=== PATIENT | male | born 1955 | race Caucasian/White ===

== ENCOUNTER 2018-06-10 17:47 | Inpatient (IN) | payer MEDICARE, MEDICAID ==
--- NOTE | 2018-06-10 18:15 | ED Physician Chart ---
ED Chief Complaint/HPI - Patient Information Date Seen:: 06/10/18 Time Seen:: 18:10 Chief Complaint:: rash dermatitis History of Present Illness:: 62 yr old male from [facility] for rash arms no sob or trouble breathing pt states rash started after they put acream on his arms after they showered him he says he is better now Allergies:: Allergies Allergy/AdvReac Type Severity Reaction Status Date / Time No Known Allergies Allergy Verified 06/10/18 17:57 Vitals:: Vital Signs - 8 hr 06/10/18 17:57 Temp 98.6 F HR 67 RR 18 BP 169/68 O2 Sat % 95 ED Review of Systems - Review of Systems Skin: Skin lesions Head: No headache Eyes: Other (chronic vision problems secondary to diabetes) ENT: No earache Neck: No neck pain Cardio Vascular: No chest pain Pulmonary: No SOB GI: No vomiting G/U: No dysuria Endocrine: No polyuria Allergic/Immuno: No urticaria Neurological: No syncope ED Past Medical History - Past Medical History Past Medical History: DM, ESRD, Seizures, Other (hemodialysis ) Surgical History: other (bilateral bka) Family Medical History - Family Member Mother History Unknown: Yes ED Physical Exam - Physical Examination General/Constitutional: Well-developed, well-nourished Head: Atraumatic Eyes: Lids, conjuctiva normal Skin: No ecchymosis Neck: Nontender Respiratory: Nl effort/Exclusion Cardio Vascular: No murmur, gallop, rubs GI: No tenderness/rebounding/guarding Extremities: No tenderness or effusion (bilateral bka) Neuro/Psych: Alert/oriented ED Assessment - Assessment General Assessment: skin rash dermatitis dm bilateral bka mild cellulitis ED Septic Shock - . Is Septic Shock (SBP<90, OR Lactate>4 mmol\L) present?: No - <6hrs of presentation: Vital Signs: Vital Signs - 8 hr 06/10/18 17:57 Temp 98.6 F HR 67 RR 18 BP 169/68 O2 Sat % 95 ED Reassessment (Disposition) - Reassessment Reassessment:: stable Reassessment Condition:: Improved - Diagnosis Diagnosis:: dermatitis cellulitis - Patient Disposition Discharge/Transfer:: Acute Care w/in this hosp Condition at Disposition:: Stable
[2018-06-10 18:37] LABS: % BASOPHILS 0.7 % (0.0-2.0); % EOSINOPHILS 0.7 % (0.0-5.0); % LYMPHOCYTES 5.5 % (20.0-50.0); % MONOCYTES 3.3 % (2.0-10.0); % NEUTROPHILS 89.8 % (40.0-80.0); BASOPHILE ABSOLUTE 0.1 Th/cumm (0-0.2); EOSINOPHILE ABSOLUTE 0.1 Th/cmm (0.1-0.4); HEMATOCRIT 38.4 % (41.0-60); HEMOGLOBIN 12.3 gm/dL (12-16); LYMPHOCYTE ABSOLUTE 0.5 Th/cmm (1.5-3.0); MEAN CORPUSCULAR HEMOGLOBIN 28.9 pg (26.0-30.0); MEAN CORPUSCULAR HGB CONC 32.1 pg (28.0-36.0); MEAN PLATELET VOLUME 7.3 fl; MONOCYTE ABSOLUTE 0.3 Th/cmm (0.3-1.0); NEUTROPHILE ABSOLUTE 8.5 Th/cmm (1.8-8.0); PLATELET COUNT 220 Th/cmm (150-400); RED BLOOD COUNT 4.27 Mil/cmm (4.30-5.70); RED CELL DISTRIBUTION WIDTH 16.4 % (11.5-20.0); WHITE BLOOD COUNT 9.5 Th/cmm (4.8-10.8)
[2018-06-10 19:00] LABS: ALB/GLOB RATIO 1.2 (1.0-1.8); ALBUMIN 3.2 gm/dL (4.2-5.5); ANION GAP 16.6 (7.0-16.0); BILIRUBIN,TOTAL 0.3 mg/dL (0.3-1.0); CALCIUM SERUM 9.2 mg/dL (8.6-10.3); GFR AFRICAN-AMERICAN 13.2 ml/min (>90); GFR NON AFRICAN-AMERICAN 10.9 ml/min; POTASSIUM SERUM 4.6 mEq/L (3.5-5.1); TOTAL PROTEIN,SERUM 5.9 gm/dL (6.0-8.3)
[2018-06-10 19:02] LABS: CREATININE - SERUM 5.7 mg/dL (0.7-1.3)
[2018-06-10 20:49] LABS: URINE SOURCE CLEAN C
[2018-06-10 20:50] LABS: URINE BILIRUBIN NEGATIVE (NEGATIVE); URINE BLOOD TRACE (NEGATIVE); URINE GLUCOSE (UA) 100 mg/dL (NEGATIVE); URINE KETONE NEGATIVE (NEGATIVE); URINE LEUKOCYTE ESTERASE NEGATIVE (NEGATIVE); URINE MICROSCOPIC INDICATED? YES; URINE NITRATE NEGATIVE (NEGATIVE); URINE PROTEIN 100 mg/dL (NEGATIVE); URINE UROBILINOGEN 0.2 E.U./dL (0.2 - 1.0)
[2018-06-10 20:56] LABS: URINE CLARITY CLEAR (CLEAR); URINE COLOR YELLOW
[2018-06-10 20:59] LABS: URINE BACTERIA FEW /hpf (NONE SEEN); URINE EPITHELIAL CELLS FEW /lpf (FEW); URINE WBC 0-2 /hpf (0-5)
[2018-06-10 22:01] VITALS: BP 172/71
[2018-06-10] MEDS: Hydrocodone/APAP 5mg/325mg Tab PO PRN (22:46)
[2018-06-10] MEDS: D5-0.45NS 1,000 ML IV SCH (22:50)
[2018-06-11 05:14] LABS: % BASOPHILS 0.7 % (0.0-2.0); % EOSINOPHILS 0.7 % (0.0-5.0); % LYMPHOCYTES 10.4 % (20.0-50.0); % MONOCYTES 6.3 % (2.0-10.0); % NEUTROPHILS 81.9 % (40.0-80.0); BASOPHILE ABSOLUTE 0.1 Th/cumm (0-0.2); EOSINOPHILE ABSOLUTE 0.1 Th/cmm (0.1-0.4); HEMATOCRIT 36.5 % (41.0-60); HEMOGLOBIN 11.6 gm/dL (12-16); LYMPHOCYTE ABSOLUTE 0.9 Th/cmm (1.5-3.0); MEAN CELL VOLUME 89.9 fl (80-99); MEAN CORPUSCULAR HEMOGLOBIN 28.6 pg (26.0-30.0); MEAN CORPUSCULAR HGB CONC 31.9 pg (28.0-36.0); MEAN PLATELET VOLUME 7.5 fl; MONOCYTE ABSOLUTE 0.6 Th/cmm (0.3-1.0); NEUTROPHILE ABSOLUTE 7.2 Th/cmm (1.8-8.0); PLATELET COUNT 212 Th/cmm (150-400); RED BLOOD COUNT 4.06 Mil/cmm (4.30-5.70); RED CELL DISTRIBUTION WIDTH 16.6 % (11.5-20.0); WHITE BLOOD COUNT 8.9 Th/cmm (4.8-10.8)
[2018-06-11 05:37] LABS: ANION GAP 15.3 (7.0-16.0); CALCIUM SERUM 9.2 mg/dL (8.6-10.3); CARBON DIOXIDE 25.1 mEq/L (21.0-31.0); GFR AFRICAN-AMERICAN 12.4 ml/min (>90); GFR NON AFRICAN-AMERICAN 10.2 ml/min; POTASSIUM SERUM 4.4 mEq/L (3.5-5.1)
[2018-06-11] MEDS ORDERED: Albumin 25% 12.5gm/50mL 12.5 GM/50 ML BTL IV PRN (10:34)
[2018-06-11] MEDS ORDERED: Heparin Sodium 1,000 Units/mL Vial HD PRN (13:19)
[2018-06-11] MEDS ORDERED: Polyvinyl Alcohol Ophth Soln 15 mL Bottle EACH EYE PRN (13:33)
[2018-06-11] MEDS ORDERED: Non-Formulary Item 1 EA (Melatonin [Melatonin] 5 MG) PO PRN (13:33)
[2018-06-11] MEDS ORDERED: Hydrocodone/APAP 5mg/325mg Tab PO PRN ×2 (13:33→20:36)
[2018-06-11] MEDS ORDERED: Acetaminophen 500 MG TAB PO PRN (13:33)
[2018-06-11] MEDS ORDERED: Non-Formulary Item 1 EA (Amino Acids/Protein Hydrolys [Pro-Stat Sugar Free Liquid] 30 ML) PO SCH (14:00)
--- NOTE | 2018-06-11 14:44 | History & Physical ---
ADMIT DATE: 06/11/2018 CHIEF COMPLAINT: Dermatitis. HISTORY OF PRESENT ILLNESS: This is a 62-year-old male who is a senior living resident, admitted to the med/surg unit due to rash in bilateral upper extremity. The patient denies any fevers at the senior living. PAST MEDICAL HISTORY: Diabetes, ESRD, and seizures. PAST SURGICAL HISTORY: Bilateral BKA. ALLERGIES: No drug allergies. FAMILY HISTORY: Noncontributory. REVIEW OF SYSTEMS: GENERAL: Denies any fever or chills. CARDIOVASCULAR: No chest pain. RESPIRATORY: Denies shortness of breath. GASTROINTESTINAL: Denies nausea, vomiting, abdominal pain. GENITOURINARY: Denies increased frequency or dysuria. NEUROLOGIC: No headaches, seizures, or syncope. All systems reviewed and negative. PHYSICAL EXAMINATION: GENERAL: Elderly male. Awake, alert, in no apparent distress. VITAL SIGNS: Temperature 98, heart rate 55, blood pressure 161/65, respirations 20, and O2 100%. HEENT: Head; normocephalic, atraumatic. NECK: Supple. No mass. LUNGS: Clear bilaterally. HEART: Regular rhythm. ABDOMEN: Soft, nontender. SKIN: Bilateral upper extremity noted with pruritic rash. LABORATORY DATA: WBC 8.9, H and H 11.6 and 36.5, and platelet of 212. Sodium 132, potassium 4.4, chloride 96, BUN 56, and creatinine 6.0. ASSESSMENT: Acute dermatitis, end-stage renal disease, on hemodialysis; type 2 diabetes, seizures, and history of bilateral below knee amputation. PLAN: The patient is to be admitted to the med/surg unit. Get Nephrology consultation. We will continue HD as per Renal. Follow up labs will be ordered. Arterial Doppler will be ordered. Continue current plan of care. JOB# [id number]
[2018-06-11] MEDS: Hydrocodone/APAP 5mg/325mg Tab PO PRN ×2 (15:08→20:27)
[2018-06-11] MEDS ORDERED: INSULIN ASPART SLIDING SCALE 100 UNITS/ML UNIT SUBQ SCH ×2 (16:30→21:00)
[2018-06-11] MEDS ORDERED: CYCLOSPORINE OP SCH (17:00)
[2018-06-11] MEDS: INSULIN ASPART SLIDING SCALE 100 UNITS/ML UNIT SUBQ SCH ×2 (17:24→20:15)
[2018-06-11] MEDS: D5-0.45NS 1,000 ML IV SCH (18:52)
--- NOTE | 2018-06-12 00:21 | Consultation ---
DATE OF CONSULTATION: 06/11/2018 ATTENDING: Dr. Nadege Alejandra. BEEF GRADER: Dr. Felipe Reina. REASON FOR CONSULTATION: Electrolyte imbalance and fluid management. HISTORY OF PRESENT ILLNESS: This is a 62-year-old male with past medical history of end-stage renal disease on hemodialysis, who came in because of upper chest rash. A few days prior to admission, the patient developed upper chest rash. He denied any pruritus. He received ivermectin, permethrin 5% cream, and prednisone 10 mg, which was scheduled for 5 days. A few hours prior to admission, his rash did not improve and so he was sent to the Emergency Room. His white count was 8.9. He had no fever/chills, arthralgias, pruritus, or abdominal pain. PAST MEDICAL HISTORY: 1. End-stage renal disease on hemodialysis. 2. Anemia of chronic disease. 3. Type 2 diabetes mellitus. 4. Dyslipidemia. 5. Epilepsy. 6. Chronic atrial fibrillation. 7. Peripheral arterial disease. 8. GERD. 9. Legally blind. 10. Hypothyroidism. PAST SURGICAL HISTORY: 1. Bilateral BKA. 2. Left AV fistula. CURRENT MEDICATIONS: He is currently on acetaminophen, alprazolam, amiodarone, buspirone, ascorbic acid, calcium carbonate, clonidine, escitalopram, famotidine, ferrous sulfate, hydrocodone/APAP, ivermectin, lactobacillus, levetiracetam, levothyroxine, melatonin, multivitamins, pantoprazole, permethrin 5% cream, sevelamer, Restoril, vitamin B complex. ALLERGIES: No known drug allergies. SOCIAL AND FAMILY HISTORY: I was not able to obtain from the patient because he is somewhat agitated, angry, and does not want to cooperate. REVIEW OF SYSTEMS: Again, I was not able to obtain from the patient because of his behavior. PHYSICAL EXAMINATION: GENERAL: The patient is uncooperative, does not really want to be examined: Blood pressure is 161/65, pulse 55, temperature 98 degrees. SKIN: Poor turgor, warm. He has this papular rash mainly in the upper chest, lower neck area, no jaundice appreciated. No erythema. HEENT: Head normocephalic, atraumatic. EYES: The patient is legally blind. Nose, midline nasal septum. Mouth, moist mucosa, adequate dentition. NECK: Supple, no adenopathy, no thyromegaly, no bruits. Trachea palpated in the midline. CHEST AND CARDIOVASCULAR: Upper chest area has papular rash with some scratch mathews. There is no extensive erythema. S1, S2, no rub appreciated. Point of maximal impulse fifth intercostal space, left midclavicular line. No abdominal or femoral bruits appreciated. LUNGS: Equal expansion. No use of accessory muscles. No supraclavicular retractions. Decreased breath sounds. Clear to auscultation without any wheeze. ABDOMEN: Mildly obese, soft, positive for bowel sounds. No bruits either diastolic or systolic. RECTAL: Lax sphincter tone. GENITOURINARY: Normal appearing male genitalia. MUSCULOSKELETAL: No effusions present in his joints, but unable to assess his range of motion. EXTREMITIES: He has bilateral BKA. He has a palpable femoral. NEUROLOGIC: The patient is alert, verbal, motor is 5/5. Cranial nerves was not assessed because the patient remains uncooperative. Sensory intact. LABORATORY DATA: Did reveal white count 8, hemoglobin 11.6, hematocrit 36.5, platelets 212. Sodium 132, potassium 4.4, chloride 96, bicarbonate 25, BUN 56, creatinine 6, glucose 172, albumin 3.2. TSH 2.05. IMPRESSION: 1. End-stage renal disease on hemodialysis. 2. Upper chest papular rash, possibly scabies and has been managed with ivermectin, permethrin as well as prednisone. Treatment is possibly for underlying scabies. 3. Legally blind. 4. Anemia of chronic disease. 5. Type 2 diabetes mellitus of chronic kidney disease. 6. Essential hypertension with chronic kidney disease. 7. Epilepsy. 8. Chronic atrial fibrillation. 9. Peripheral arterial disease, status post bilateral below-knee amputation. 10. Gastroesophageal reflux disease. 11. Hypothyroidism. PLAN: 1. Hemodialysis as scheduled. 2. Request for CRP and ESR with complements. 3. Continue with ivermectin, permethrin, and prednisone. 4. Consider discontinuing or decreasing amiodarone due to bradycardia. JOB# [id number]
[2018-06-12] MEDS: INSULIN ASPART SLIDING SCALE 100 UNITS/ML UNIT SUBQ SCH ×4 (06:45→21:14)
[2018-06-12 06:49] LABS: % BASOPHILS 1.3 % (0.0-2.0); % EOSINOPHILS 5.8 % (0.0-5.0); % LYMPHOCYTES 20.8 % (20.0-50.0); % MONOCYTES 9.5 % (2.0-10.0); % NEUTROPHILS 62.6 % (40.0-80.0); BASOPHILE ABSOLUTE 0.1 Th/cumm (0-0.2); EOSINOPHILE ABSOLUTE 0.4 Th/cmm (0.1-0.4); HEMATOCRIT 37.5 % (41.0-60); HEMOGLOBIN 12.2 gm/dL (12-16); LYMPHOCYTE ABSOLUTE 1.6 Th/cmm (1.5-3.0); MEAN CELL VOLUME 90.1 fl (80-99); MEAN CORPUSCULAR HEMOGLOBIN 29.3 pg (26.0-30.0); MEAN CORPUSCULAR HGB CONC 32.6 pg (28.0-36.0); MEAN PLATELET VOLUME 7.4 fl; MONOCYTE ABSOLUTE 0.7 Th/cmm (0.3-1.0); NEUTROPHILE ABSOLUTE 4.8 Th/cmm (1.8-8.0); PLATELET COUNT 193 Th/cmm (150-400); RED BLOOD COUNT 4.16 Mil/cmm (4.30-5.70); WHITE BLOOD COUNT 7.6 Th/cmm (4.8-10.8)
[2018-06-12] MEDS: Levothyroxine 0.075 Mg Tab PO SCH (06:56)
[2018-06-12 07:05] LABS: ANION GAP 11.8 (7.0-16.0); CALCIUM SERUM 8.6 mg/dL (8.6-10.3); CARBON DIOXIDE 28.1 mEq/L (21.0-31.0); GFR AFRICAN-AMERICAN 16.4 ml/min (>90); GFR NON AFRICAN-AMERICAN 13.6 ml/min; POTASSIUM SERUM 3.9 mEq/L (3.5-5.1)
[2018-06-12 07:14] LABS: CREATININE - SERUM 4.7 mg/dL (0.7-1.3)
[2018-06-12 08:08] LABS: HEP A AB IGM Negative (Negative); HEP B CORE IGM Negative (Negative); HEP B SURFACE AG QL Negative (Negative); HEP C ANTIBODY 0.1 s/co ratio (0.0-0.9)
[2018-06-12] MEDS: Multivitamin w/ Minerals 15 mL UDC PO SCH (10:31)
[2018-06-12] MEDS: Ferrous Sulfate 325 MG TAB PO SCH (10:31)
[2018-06-12] MEDS: Vitamin B Complex w/Vitamin C Tab PO SCH (10:32)
[2018-06-12] MEDS: Pantoprazole 40 mg EC Tab PO SCH (10:32)
[2018-06-12] MEDS: Lactobacillus Rhamnosus GG 15 Billion CFU CAP.SPRINK PO SCH (10:32)
--- NOTE | 2018-06-12 13:17 | Diagnostic Imaging Report ---
Bilateral lower extremity Doppler arterial ultrasound exam HISTORY: Bilateral below the knee amputations, pain Sonographic sector images were obtained to the common femoral, superficial femoral, popliteal arteries bilaterally. The exam demonstrates triphasic waveforms through the arterial systems of both legs. No significant narrowing or stenosis is seen. IMPRESSION: 1. Status post below the knee amputations bilaterally 2. No significant narrowing or stenosis within the visualized arterial systems.
--- NOTE | 2018-06-12 14:38 | General Progress Note ---
Subjective - Review of Systems Service Date: 06/12/18 Subjective: sleeping, comfortable Objective - Results Result Diagrams: 06/12/18 06:10 06/12/18 06:10 Recent Labs: Laboratory Last Values WBC 7.6 Th/cmm (4.8-10.8) 06/12/18 06:10 RBC 4.16 Mil/cmm (4.30-5.70) L 06/12/18 06:10 Hgb 12.2 gm/dL (12-16) 06/12/18 06:10 Hct 37.5 % (41.0-60) L 06/12/18 06:10 MCV 90.1 fl (80-99) 06/12/18 06:10 MCH 29.3 pg (26.0-30.0) 06/12/18 06:10 MCHC Differential 32.6 pg (28.0-36.0) 06/12/18 06:10 RDW 17.0 % (11.5-20.0) 06/12/18 06:10 Plt Count 193 Th/cmm (150-400) 06/12/18 06:10 MPV 7.4 fl 06/12/18 06:10 Neutrophils % 62.6 % (40.0-80.0) 06/12/18 06:10 Lymphocytes % 20.8 % (20.0-50.0) 06/12/18 06:10 Monocytes % 9.5 % (2.0-10.0) 06/12/18 06:10 Eosinophils % 5.8 % (0.0-5.0) H 06/12/18 06:10 Basophils % 1.3 % (0.0-2.0) 06/12/18 06:10 Sodium 135 mEq/L (136-145) L 06/12/18 06:10 Potassium 3.9 mEq/L (3.5-5.1) 06/12/18 06:10 Chloride 99 mEq/L (98-107) 06/12/18 06:10 Carbon Dioxide 28.1 mEq/L (21.0-31.0) 06/12/18 06:10 Anion Gap 11.8 (7.0-16.0) 06/12/18 06:10 BUN 44 mg/dL (7-25) H 06/12/18 06:10 Creatinine 4.7 mg/dL (0.7-1.3) H* 06/12/18 06:10 Est GFR ( Amer) 16.4 ml/min (>90) 06/12/18 06:10 Est GFR (Non-Af Amer) 13.6 ml/min 06/12/18 06:10 BUN/Creatinine Ratio 9.4 06/12/18 06:10 Glucose 108 mg/dL (70-105) H 06/12/18 06:10 POC Glucose 113 MG/DL (70 - 105) H 06/12/18 11:51 Calcium 8.6 mg/dL (8.6-10.3) 06/12/18 06:10 Total Bilirubin 0.3 mg/dL (0.3-1.0) 06/10/18 18:20 AST 12 U/L (13-39) L 06/10/18 18:20 ALT 16 U/L (7-52) 06/10/18 18:20 Alkaline Phosphatase 102 U/L (34-104) 06/10/18 18:20 Total Protein 5.9 gm/dL (6.0-8.3) L 06/10/18 18:20 Albumin 3.2 gm/dL (4.2-5.5) L 06/10/18 18:20 Globulin 2.7 gm/dL 06/10/18 18:20 Albumin/Globulin Ratio 1.2 (1.0-1.8) 06/10/18 18:20 Triglycerides 79 mg/dL (<150) 06/11/18 05:00 Cholesterol 105 mg/dL (<200) 06/11/18 05:00 LDL Cholesterol Direct 68 mg/dL (75-193) L 06/11/18 05:00 HDL Cholesterol 35 mg/dL (23-92) 06/11/18 05:00 TSH 2.05 uIU/ml (0.34-5.60) 06/11/18 05:00 Urine Source CLEAN C 06/10/18 20:35 Urine Color YELLOW 06/10/18 20:35 Urine Clarity CLEAR (CLEAR) 06/10/18 20:35 Urine pH 8.0 (4.6 - 8.0) 06/10/18 20:35 Ur Specific [place] 1.010 (1.005-1.030) 06/10/18 20:35 Urine Protein 100 mg/dL (NEGATIVE) H 06/10/18 20:35 Urine Glucose (UA) 100 mg/dL (NEGATIVE) H 06/10/18 20:35 Urine Ketones NEGATIVE mg/dL (NEGATIVE) 06/10/18 20:35 Urine Blood TRACE (NEGATIVE) 06/10/18 20:35 Urine Nitrate NEGATIVE (NEGATIVE) 06/10/18 20:35 Urine Bilirubin NEGATIVE (NEGATIVE) 06/10/18 20:35 Urine Urobilinogen 0.2 E.U./dL (0.2 - 1.0) 06/10/18 20:35 Ur Leukocyte Esterase NEGATIVE (NEGATIVE) 06/10/18 20:35 Urine RBC 2-5 /hpf (0-5) H 06/10/18 20:35 Urine WBC 0-2 /hpf (0-5) 06/10/18 20:35 Ur Epithelial Cells FEW /lpf (FEW) 06/10/18 20:35 Urine Bacteria FEW /hpf (NONE SEEN) 06/10/18 20:35 Urine Mucus FEW /lpf (FEW) 06/10/18 20:35 Hepatitis A IgM Ab Negative (Negative) 06/11/18 05:00 Hep Bs Antigen Negative (Negative) 06/11/18 05:00 Hep B Core IgM Ab Negative (Negative) 06/11/18 05:00 Hepatitis C Antibody 0.1 s/co ratio (0.0-0.9) 06/11/18 05:00 - Physical Exam Vitals and I&O: Vital Signs Temp 98.3 F 06/12/18 11:38 Pulse 74 06/12/18 11:38 Resp 18 06/12/18 11:38 BP 126/84 06/12/18 11:38 Pulse Ox 96 06/12/18 11:38 Intake & Output 06/11/18 06/12/18 06/12/18 18:59 06:59 18:59 Intake Total 1740 240 Balance 1740 240 Weight (lbs) 97.522 kg 90.775 kg Intake: Intake, IV Amount 1000 D5-0.45NS 1,000 ml @ 50 1000 mls/hr IV .Q20H [facility] Rx#: [id number] Oral 740 240 Other: # Voids 3 2 # Bowel Movements 0 0 Weight Source Bedscale Bedscale Active Medications: Current Medications Acetaminophen (Tylenol Extra Strength) 1,000 mg PO Q8H PRN PRN Reason: MOD PAIN Stop: 08/10/18 13:32 Acetaminophen (Tylenol) 650 mg PO Q6H PRN PRN Reason: MILD PAIN OR TEMP >100.5 Acetaminophen/Hydrocodone Bitart (Lula 5mg/325mg) 1 tab PO Q4H PRN PRN Reason: Severe Pain 8-10 Stop: 08/09/18 22:20 Last Admin: 06/12/18 13:37 Dose: 1 tab Alprazolam (Xanax) 0.5 mg PO DAILY [facility]; Protocol Stop: 08/11/18 08:59 Amiodarone HCl (Cordarone) 200 mg PO DAILY [facility] Stop: 08/11/18 08:59 Last Admin: 06/12/18 10:32 Dose: 200 mg Artificial Tears (Artificial Tears Ophth Soln) 1 drop EACH EYE TID PRN PRN Reason: DRY EYES Ascorbic Acid (Vitamin C) 500 mg PO DAILY [facility] Stop: 08/11/18 08:59 Last Admin: 06/12/18 10:31 Dose: 500 mg Buspirone HCl (Buspar) 10 mg PO BID [facility] Stop: 08/10/18 16:59 Calcium Carbonate (Tums) 500 mg PO Q6H PRN PRN Reason: Gas Stop: 08/10/18 13:32 Escitalopram Oxalate (Lexapro) 15 mg PO DAILY [facility]; Protocol Stop: 08/11/18 08:59 Famotidine (Pepcid) 20 mg PO DAILY [facility] Stop: 08/11/18 08:59 Last Admin: 06/12/18 10:32 Dose: 20 mg Ferrous Sulfate (Iron) 325 mg PO DAILY [facility] Stop: 08/11/18 08:59 Last Admin: 06/12/18 10:31 Dose: 325 mg Heparin Sodium (Porcine) (Heparin) 2,000 units HD PRN PRN PRN Reason: DIALYSIS DAYS Stop: 08/10/18 13:18 Last Admin: 06/11/18 17:15 Dose: 2,000 units Dextrose/Sodium Chloride (D5-0.45ns) 1,000 mls @ 50 mls/hr IV .Q20H [facility] Stop: 08/09/18 21:59 Last Admin: 06/11/18 18:52 Dose: 50 mls/hr Insulin Aspart (Novolog Insulin Sliding Scale) 0 units SUBQ ACHS [facility]; Protocol Stop: 08/10/18 17:20 Last Admin: 06/12/18 11:56 Dose: Not Given Ivermectin (Stromectol) 15 mg PO QSUN [facility] Stop: 06/16/18 11:00 Lactobacillus Rhamnosus (Culturelle 15b) 1 each PO DAILY [facility] Stop: 08/11/18 08:59 Last Admin: 06/12/18 10:32 Dose: 1 each Levetiracetam (Keppra) 250 mg PO BID [facility] Stop: 08/10/18 16:59 Last Admin: 06/12/18 10:32 Dose: 250 mg Levothyroxine Sodium (Synthroid) 0.075 mg PO QDAC [facility] Stop: 08/11/18 07:29 Last Admin: 06/12/18 06:56 Dose: 0.075 mg Miscellaneous (Clinical Monitoring) 1 ea MC DAILY PRN PRN Reason: RENAL DOSING Stop: 08/10/18 08:11 Miscellaneous (Cyclosporin Opthalmic Solution) 0.05 % OP BID [facility] Stop: 08/10/18 16:59 Multivitamins/Minerals (Theragran M) 15 ml PO DAILY [facility] Stop: 08/11/18 08:59 Last Admin: 06/12/18 10:31 Dose: 15 ml Pantoprazole Sodium (Protonix) 40 mg PO DAILY [facility] Stop: 08/11/18 08:59 Last Admin: 06/12/18 10:32 Dose: 40 mg Permethrin (Elimite 5% Cream) 1 appl TP [id number] [facility] Stop: 06/16/18 20:59 Sevelamer Carbonate (Renvela) 2,400 mg PO TID [facility] Stop: 08/10/18 13:59 Last Admin: 06/12/18 13:37 Dose: 2,400 mg Temazepam (Restoril) 30 mg PO HS PRN; Protocol PRN Reason: Insomnia Stop: 08/10/18 20:32 Last Admin: 06/11/18 20:50 Dose: 30 mg Vitamin B Complex/Vit C/Folic Acid (Vitamin B Complex W/Vitamin C) 1 tab PO DAILY [facility] Stop: 08/11/18 08:59 Last Admin: 06/12/18 10:32 Dose: 1 tab General: Alert, No acute distress HEENT: Atraumatic, PERRLA, EOMI, Mucous membr. moist/pink Neck: Supple, +2 carotid pulse wo bruit Cardiovascular: Regular rate, Normal S1 Lungs: Clear to auscultation Abdomen: Bowel sounds, Soft, Obese Extremities: no Edema Neurological: Sensation intact Skin: no Rash Psych/Mental Status: Mood NL Assessment/Plan - Problem List Patient Problems: All Active Problems RASH, WEAKNESS AND SYNCOPE (Acute) - Assessment Assessment: ESRD on HD Upper Chest Scabies Legally Blind Anemia of CD T2DM w/ CKD Ess Htn w/ CKD Epilepsy Hypothyroid - Plan Plan: Lab - Result Diagrams 06/12/18 06:10 06/12/18 06:10 Current Medications Acetaminophen (Tylenol Extra Strength) 1,000 mg PO Q8H PRN PRN Reason: MOD PAIN Stop: 08/10/18 13:32 Acetaminophen (Tylenol) 650 mg PO Q6H PRN PRN Reason: MILD PAIN OR TEMP >100.5 Acetaminophen/Hydrocodone Bitart (Lula 5mg/325mg) 1 tab PO Q4H PRN PRN Reason: Severe Pain 8-10 Stop: 08/09/18 22:20 Last Admin: 06/12/18 13:37 Dose: 1 tab Alprazolam (Xanax) 0.5 mg PO DAILY [facility]; Protocol Stop: 08/11/18 08:59 Amiodarone HCl (Cordarone) 200 mg PO DAILY [facility] Stop: 08/11/18 08:59 Last Admin: 06/12/18 10:32 Dose: 200 mg Artificial Tears (Artificial Tears Ophth Soln) 1 drop EACH EYE TID PRN PRN Reason: DRY EYES Ascorbic Acid (Vitamin C) 500 mg PO DAILY [facility] Stop: 08/11/18 08:59 Last Admin: 06/12/18 10:31 Dose: 500 mg Buspirone HCl (Buspar) 10 mg PO BID [facility] Stop: 08/10/18 16:59 Calcium Carbonate (Tums) 500 mg PO Q6H PRN PRN Reason: Gas Stop: 08/10/18 13:32 Escitalopram Oxalate (Lexapro) 15 mg PO DAILY [facility]; Protocol Stop: 08/11/18 08:59 Famotidine (Pepcid) 20 mg PO DAILY [facility] Stop: 08/11/18 08:59 Last Admin: 06/12/18 10:32 Dose: 20 mg Ferrous Sulfate (Iron) 325 mg PO DAILY [facility] Stop: 08/11/18 08:59 Last Admin: 06/12/18 10:31 Dose: 325 mg Heparin Sodium (Porcine) (Heparin) 2,000 units HD PRN PRN PRN Reason: DIALYSIS DAYS Stop: 08/10/18 13:18 Last Admin: 06/11/18 17:15 Dose: 2,000 units Dextrose/Sodium Chloride (D5-0.45ns) 1,000 mls @ 50 mls/hr IV .Q20H [facility] Stop: 08/09/18 21:59 Last Admin: 06/11/18 18:52 Dose: 50 mls/hr Insulin Aspart (Novolog Insulin Sliding Scale) 0 units SUBQ ACHS [facility]; Protocol Stop: 08/10/18 17:20 Last Admin: 06/12/18 11:56 Dose: Not Given Ivermectin (Stromectol) 15 mg PO QSUN [facility] Stop: 06/16/18 11:00 Lactobacillus Rhamnosus (Culturelle 15b) 1 each PO DAILY [facility] Stop: 08/11/18 08:59 Last Admin: 06/12/18 10:32 Dose: 1 each Levetiracetam (Keppra) 250 mg PO BID [facility] Stop: 08/10/18 16:59 Last Admin: 06/12/18 10:32 Dose: 250 mg Levothyroxine Sodium (Synthroid) 0.075 mg PO QDAC [facility] Stop: 08/11/18 07:29 Last Admin: 06/12/18 06:56 Dose: 0.075 mg Miscellaneous (Clinical Monitoring) 1 ea MC DAILY PRN PRN Reason: RENAL DOSING Stop: 08/10/18 08:11 Miscellaneous (Cyclosporin Opthalmic Solution) 0.05 % OP BID [facility] Stop: 08/10/18 16:59 Multivitamins/Minerals (Theragran M) 15 ml PO DAILY [facility] Stop: 08/11/18 08:59 Last Admin: 06/12/18 10:31 Dose: 15 ml Pantoprazole Sodium (Protonix) 40 mg PO DAILY [facility] Stop: 08/11/18 08:59 Last Admin: 06/12/18 10:32 Dose: 40 mg Permethrin (Elimite 5% Cream) 1 appl TP [id number] [facility] Stop: 06/16/18 20:59 Sevelamer Carbonate (Renvela) 2,400 mg PO TID [facility] Stop: 08/10/18 13:59 Last Admin: 06/12/18 13:37 Dose: 2,400 mg Temazepam (Restoril) 30 mg PO HS PRN; Protocol PRN Reason: Insomnia Stop: 08/10/18 20:32 Last Admin: 06/11/18 20:50 Dose: 30 mg Vitamin B Complex/Vit C/Folic Acid (Vitamin B Complex W/Vitamin C) 1 tab PO DAILY [facility] Stop: 08/11/18 08:59 Last Admin: 06/12/18 10:32 Dose: 1 tab Lab - Result Diagrams 06/12/18 06:10 06/12/18 06:10 schedule for HD in am continue Ivermectin, Permethine
[2018-06-12] MEDS: D5-0.45NS 1,000 ML IV SCH (15:22)
--- NOTE | 2018-06-12 20:36 | General Progress Note ---
Subjective - Review of Systems Service Date: 06/12/18 Events since last encounter: patent awake alert admitted with rash on gerardo upper ext denies pain, denies fever Objective - Results Result Diagrams: 06/13/18 08:25 06/13/18 08:25 Recent Labs: Laboratory Last Values WBC 7.6 Th/cmm (4.8-10.8) 06/12/18 06:10 RBC 4.16 Mil/cmm (4.30-5.70) L 06/12/18 06:10 Hgb 12.2 gm/dL (12-16) 06/12/18 06:10 Hct 37.5 % (41.0-60) L 06/12/18 06:10 MCV 90.1 fl (80-99) 06/12/18 06:10 MCH 29.3 pg (26.0-30.0) 06/12/18 06:10 MCHC Differential 32.6 pg (28.0-36.0) 06/12/18 06:10 RDW 17.0 % (11.5-20.0) 06/12/18 06:10 Plt Count 193 Th/cmm (150-400) 06/12/18 06:10 MPV 7.4 fl 06/12/18 06:10 Neutrophils % 62.6 % (40.0-80.0) 06/12/18 06:10 Lymphocytes % 20.8 % (20.0-50.0) 06/12/18 06:10 Monocytes % 9.5 % (2.0-10.0) 06/12/18 06:10 Eosinophils % 5.8 % (0.0-5.0) H 06/12/18 06:10 Basophils % 1.3 % (0.0-2.0) 06/12/18 06:10 Sodium 135 mEq/L (136-145) L 06/12/18 06:10 Potassium 3.9 mEq/L (3.5-5.1) 06/12/18 06:10 Chloride 99 mEq/L (98-107) 06/12/18 06:10 Carbon Dioxide 28.1 mEq/L (21.0-31.0) 06/12/18 06:10 Anion Gap 11.8 (7.0-16.0) 06/12/18 06:10 BUN 44 mg/dL (7-25) H 06/12/18 06:10 Creatinine 4.7 mg/dL (0.7-1.3) H* 06/12/18 06:10 Est GFR ( Amer) 16.4 ml/min (>90) 06/12/18 06:10 Est GFR (Non-Af Amer) 13.6 ml/min 06/12/18 06:10 BUN/Creatinine Ratio 9.4 06/12/18 06:10 Glucose 108 mg/dL (70-105) H 06/12/18 06:10 POC Glucose 115 MG/DL (70 - 105) H 06/12/18 16:28 Calcium 8.6 mg/dL (8.6-10.3) 06/12/18 06:10 Total Bilirubin 0.3 mg/dL (0.3-1.0) 06/10/18 18:20 AST 12 U/L (13-39) L 06/10/18 18:20 ALT 16 U/L (7-52) 06/10/18 18:20 Alkaline Phosphatase 102 U/L (34-104) 06/10/18 18:20 Total Protein 5.9 gm/dL (6.0-8.3) L 06/10/18 18:20 Albumin 3.2 gm/dL (4.2-5.5) L 06/10/18 18:20 Globulin 2.7 gm/dL 06/10/18 18:20 Albumin/Globulin Ratio 1.2 (1.0-1.8) 06/10/18 18:20 Triglycerides 79 mg/dL (<150) 06/11/18 05:00 Cholesterol 105 mg/dL (<200) 06/11/18 05:00 LDL Cholesterol Direct 68 mg/dL (75-193) L 06/11/18 05:00 HDL Cholesterol 35 mg/dL (23-92) 06/11/18 05:00 TSH 2.05 uIU/ml (0.34-5.60) 06/11/18 05:00 Urine Source CLEAN C 06/10/18 20:35 Urine Color YELLOW 06/10/18 20:35 Urine Clarity CLEAR (CLEAR) 06/10/18 20:35 Urine pH 8.0 (4.6 - 8.0) 06/10/18 20:35 Ur Specific [place] 1.010 (1.005-1.030) 06/10/18 20:35 Urine Protein 100 mg/dL (NEGATIVE) H 06/10/18 20:35 Urine Glucose (UA) 100 mg/dL (NEGATIVE) H 06/10/18 20:35 Urine Ketones NEGATIVE mg/dL (NEGATIVE) 06/10/18 20:35 Urine Blood TRACE (NEGATIVE) 06/10/18 20:35 Urine Nitrate NEGATIVE (NEGATIVE) 06/10/18 20:35 Urine Bilirubin NEGATIVE (NEGATIVE) 06/10/18 20:35 Urine Urobilinogen 0.2 E.U./dL (0.2 - 1.0) 06/10/18 20:35 Ur Leukocyte Esterase NEGATIVE (NEGATIVE) 06/10/18 20:35 Urine RBC 2-5 /hpf (0-5) H 06/10/18 20:35 Urine WBC 0-2 /hpf (0-5) 06/10/18 20:35 Ur Epithelial Cells FEW /lpf (FEW) 06/10/18 20:35 Urine Bacteria FEW /hpf (NONE SEEN) 06/10/18 20:35 Urine Mucus FEW /lpf (FEW) 06/10/18 20:35 Hepatitis A IgM Ab Negative (Negative) 06/11/18 05:00 Hep Bs Antigen Negative (Negative) 06/11/18 05:00 Hep B Core IgM Ab Negative (Negative) 06/11/18 05:00 Hepatitis C Antibody 0.1 s/co ratio (0.0-0.9) 06/11/18 05:00 - Physical Exam Vitals and I&O: Vital Signs Temp 97.5 F 06/12/18 20:00 Pulse 61 06/12/18 20:00 Resp 17 06/12/18 20:00 BP 116/47 06/12/18 20:00 Pulse Ox 98 06/12/18 20:00 Intake & Output 06/12/18 06/12/18 06/13/18 06:59 18:59 06:59 Intake Total 240 1000 Balance 240 1000 Weight (lbs) 90.775 kg Intake: Intake, IV Amount 1000 D5-0.45NS 1,000 ml @ 50 1000 mls/hr IV .Q20H [facility] Rx#: [id number] Oral 240 Other: # Voids 2 # Bowel Movements 0 Weight Source Bedscale Active Medications: Current Medications Acetaminophen (Tylenol Extra Strength) 1,000 mg PO Q8H PRN PRN Reason: MOD PAIN Stop: 08/10/18 13:32 Acetaminophen (Tylenol) 650 mg PO Q6H PRN PRN Reason: MILD PAIN OR TEMP >100.5 Acetaminophen/Hydrocodone Bitart ([place] 5mg/325mg) 1 tab PO Q4H PRN PRN Reason: Severe Pain 8-10 Stop: 08/09/18 22:20 Last Admin: 06/12/18 13:37 Dose: 1 tab Alprazolam (Xanax) 0.5 mg PO DAILY [facility]; Protocol Stop: 08/11/18 08:59 Amiodarone HCl (Cordarone) 200 mg PO DAILY [facility] Stop: 08/11/18 08:59 Last Admin: 06/12/18 10:32 Dose: 200 mg Artificial Tears (Artificial Tears Ophth Soln) 1 drop EACH EYE TID PRN PRN Reason: DRY EYES Ascorbic Acid (Vitamin C) 500 mg PO DAILY [facility] Stop: 08/11/18 08:59 Last Admin: 06/12/18 10:31 Dose: 500 mg Buspirone HCl (Buspar) 10 mg PO BID [facility] Stop: 08/10/18 16:59 Calcium Carbonate (Tums) 500 mg PO Q6H PRN PRN Reason: Gas Stop: 08/10/18 13:32 Escitalopram Oxalate (Lexapro) 15 mg PO DAILY [facility]; Protocol Stop: 08/11/18 08:59 Famotidine (Pepcid) 20 mg PO DAILY [facility] Stop: 08/11/18 08:59 Last Admin: 06/12/18 10:32 Dose: 20 mg Ferrous Sulfate (Iron) 325 mg PO DAILY [facility] Stop: 08/11/18 08:59 Last Admin: 06/12/18 10:31 Dose: 325 mg Heparin Sodium (Porcine) (Heparin) 2,000 units HD PRN PRN PRN Reason: DIALYSIS DAYS Stop: 08/10/18 13:18 Last Admin: 06/11/18 17:15 Dose: 2,000 units Dextrose/Sodium Chloride (D5-0.45ns) 1,000 mls @ 50 mls/hr IV .Q20H [facility] Stop: 08/09/18 21:59 Last Admin: 06/12/18 15:22 Dose: 50 mls/hr Insulin Aspart (Novolog Insulin Sliding Scale) 0 units SUBQ ACHS [facility]; Protocol Stop: 08/10/18 17:20 Last Admin: 06/12/18 17:38 Dose: Not Given Ivermectin (Stromectol) 15 mg PO QSUN [facility] Stop: 06/16/18 11:00 Lactobacillus Rhamnosus (Culturelle 15b) 1 each PO DAILY [facility] Stop: 08/11/18 08:59 Last Admin: 06/12/18 10:32 Dose: 1 each Levetiracetam (Keppra) 250 mg PO BID [facility] Stop: 08/10/18 16:59 Last Admin: 06/12/18 18:32 Dose: 250 mg Levothyroxine Sodium (Synthroid) 0.075 mg PO QDAC [facility] Stop: 08/11/18 07:29 Last Admin: 06/12/18 06:56 Dose: 0.075 mg Miscellaneous (Clinical Monitoring) 1 ea MC DAILY PRN PRN Reason: RENAL DOSING Stop: 08/10/18 08:11 Miscellaneous (Cyclosporin Opthalmic Solution) 0.05 % OP BID [facility] Stop: 08/10/18 16:59 Multivitamins/Minerals (Theragran M) 15 ml PO DAILY [facility] Stop: 08/11/18 08:59 Last Admin: 06/12/18 10:31 Dose: 15 ml Mupirocin (Bactroban Oint) 1 appl NS BID [facility] Stop: 06/17/18 09:01 Last Admin: 06/12/18 18:33 Dose: Not Given Pantoprazole Sodium (Protonix) 40 mg PO DAILY [facility] Stop: 08/11/18 08:59 Last Admin: 06/12/18 10:32 Dose: 40 mg Permethrin (Elimite 5% Cream) 1 appl TP [id number] [facility] Stop: 06/16/18 20:59 Sevelamer Carbonate (Renvela) 2,400 mg PO TID [facility] Stop: 08/10/18 13:59 Last Admin: 06/12/18 13:37 Dose: 2,400 mg Temazepam (Restoril) 30 mg PO HS PRN; Protocol PRN Reason: Insomnia Stop: 08/10/18 20:32 Last Admin: 06/11/18 20:50 Dose: 30 mg Vitamin B Complex/Vit C/Folic Acid (Vitamin B Complex W/Vitamin C) 1 tab PO DAILY [facility] Stop: 08/11/18 08:59 Last Admin: 06/12/18 10:32 Dose: 1 tab General: Alert, No acute distress HEENT: Atraumatic, PERRLA, EOMI, Mucous membr. moist/pink Neck: Supple, +2 carotid pulse wo bruit Cardiovascular: Regular rate, Normal S1 Lungs: Clear to auscultation Abdomen: Bowel sounds, Soft, Obese Extremities: no Edema Neurological: Sensation intact Skin: no Rash Psych/Mental Status: Mood NL Assessment/Plan - Problem List Patient Problems: All Active Problems RASH, WEAKNESS AND SYNCOPE (Acute) - Plan Plan: as per order sheet
[2018-06-12] MEDS: Hydrocodone/APAP 5mg/325mg Tab PO PRN (22:46)
[2018-06-13] MEDS: INSULIN ASPART SLIDING SCALE 100 UNITS/ML UNIT SUBQ SCH ×3 (06:36→17:20)
[2018-06-13] MEDS: Pantoprazole 40 mg EC Tab PO SCH (08:58)
[2018-06-13] MEDS: Levothyroxine 0.075 Mg Tab PO SCH (08:58)
[2018-06-13] MEDS: Vitamin B Complex w/Vitamin C Tab PO SCH (08:59)
[2018-06-13 09:01] LABS: % BASOPHILS 1.2 % (0.0-2.0); % EOSINOPHILS 6.5 % (0.0-5.0); % LYMPHOCYTES 20.8 % (20.0-50.0); % MONOCYTES 9.8 % (2.0-10.0); % NEUTROPHILS 61.7 % (40.0-80.0); BASOPHILE ABSOLUTE 0.1 Th/cumm (0-0.2); EOSINOPHILE ABSOLUTE 0.5 Th/cmm (0.1-0.4); HEMATOCRIT 38.7 % (41.0-60); HEMOGLOBIN 12.6 gm/dL (12-16); LYMPHOCYTE ABSOLUTE 1.6 Th/cmm (1.5-3.0); MEAN CELL VOLUME 90.7 fl (80-99); MEAN CORPUSCULAR HEMOGLOBIN 29.5 pg (26.0-30.0); MEAN CORPUSCULAR HGB CONC 32.6 pg (28.0-36.0); MEAN PLATELET VOLUME 7.2 fl; MONOCYTE ABSOLUTE 0.7 Th/cmm (0.3-1.0); NEUTROPHILE ABSOLUTE 4.7 Th/cmm (1.8-8.0); PLATELET COUNT 210 Th/cmm (150-400); RED BLOOD COUNT 4.27 Mil/cmm (4.30-5.70); RED CELL DISTRIBUTION WIDTH 16.9 % (11.5-20.0); WHITE BLOOD COUNT 7.6 Th/cmm (4.8-10.8)
[2018-06-13] MEDS: Ferrous Sulfate 325 MG TAB PO SCH (09:01)
[2018-06-13] MEDS: Lactobacillus Rhamnosus GG 15 Billion CFU CAP.SPRINK PO SCH (09:01)
[2018-06-13] MEDS: Multivitamin w/ Minerals 15 mL UDC PO SCH (09:01)
[2018-06-13 09:15] LABS: ANION GAP 13.2 (7.0-16.0); CALCIUM SERUM 8.8 mg/dL (8.6-10.3); CARBON DIOXIDE 25.2 mEq/L (21.0-31.0); GFR AFRICAN-AMERICAN 13.7 ml/min (>90); GFR NON AFRICAN-AMERICAN 11.3 ml/min; POTASSIUM SERUM 4.4 mEq/L (3.5-5.1)
[2018-06-13 09:21] LABS: CREATININE - SERUM 5.5 mg/dL (0.7-1.3)
[2018-06-13] MEDS: Hydrocodone/APAP 5mg/325mg Tab PO PRN (14:24)
--- NOTE | 2018-06-13 15:44 | Internal Medicine Prog Note ---
Internal Medicine Subjective - Subjective Patient seen and examined:: with staff, chart reviewed Patient is:: awake, talking, other (in no distress) Per staff patient has:: no adverse event Internal Medicine Objective - Results Result Diagrams: 06/13/18 08:25 06/13/18 08:25 Recent Labs: Laboratory Last Values WBC 7.6 Th/cmm (4.8-10.8) 06/13/18 08:25 RBC 4.27 Mil/cmm (4.30-5.70) L 06/13/18 08:25 Hgb 12.6 gm/dL (12-16) 06/13/18 08:25 Hct 38.7 % (41.0-60) L 06/13/18 08:25 MCV 90.7 fl (80-99) 06/13/18 08:25 MCH 29.5 pg (26.0-30.0) 06/13/18 08:25 MCHC Differential 32.6 pg (28.0-36.0) 06/13/18 08:25 RDW 16.9 % (11.5-20.0) 06/13/18 08:25 Plt Count 210 Th/cmm (150-400) 06/13/18 08:25 MPV 7.2 fl 06/13/18 08:25 Neutrophils % 61.7 % (40.0-80.0) 06/13/18 08:25 Lymphocytes % 20.8 % (20.0-50.0) 06/13/18 08:25 Monocytes % 9.8 % (2.0-10.0) 06/13/18 08:25 Eosinophils % 6.5 % (0.0-5.0) H 06/13/18 08:25 Basophils % 1.2 % (0.0-2.0) 06/13/18 08:25 Sodium 132 mEq/L (136-145) L 06/13/18 08:25 Potassium 4.4 mEq/L (3.5-5.1) 06/13/18 08:25 Chloride 98 mEq/L (98-107) 06/13/18 08:25 Carbon Dioxide 25.2 mEq/L (21.0-31.0) 06/13/18 08:25 Anion Gap 13.2 (7.0-16.0) 06/13/18 08:25 BUN 58 mg/dL (7-25) H 06/13/18 08:25 Creatinine 5.5 mg/dL (0.7-1.3) H* 06/13/18 08:25 Est GFR ( Amer) 13.7 ml/min (>90) 06/13/18 08:25 Est GFR (Non-Af Amer) 11.3 ml/min 06/13/18 08:25 BUN/Creatinine Ratio 10.5 06/13/18 08:25 Glucose 105 mg/dL (70-105) 06/13/18 08:25 POC Glucose 162 MG/DL (70 - 105) H 06/13/18 11:49 Calcium 8.8 mg/dL (8.6-10.3) 06/13/18 08:25 Total Bilirubin 0.3 mg/dL (0.3-1.0) 06/10/18 18:20 AST 12 U/L (13-39) L 06/10/18 18:20 ALT 16 U/L (7-52) 06/10/18 18:20 Alkaline Phosphatase 102 U/L (34-104) 06/10/18 18:20 Total Protein 5.9 gm/dL (6.0-8.3) L 06/10/18 18:20 Albumin 3.2 gm/dL (4.2-5.5) L 06/10/18 18:20 Globulin 2.7 gm/dL 06/10/18 18:20 Albumin/Globulin Ratio 1.2 (1.0-1.8) 06/10/18 18:20 Triglycerides 79 mg/dL (<150) 06/11/18 05:00 Cholesterol 105 mg/dL (<200) 06/11/18 05:00 LDL Cholesterol Direct 68 mg/dL (75-193) L 06/11/18 05:00 HDL Cholesterol 35 mg/dL (23-92) 06/11/18 05:00 TSH 2.05 uIU/ml (0.34-5.60) 06/11/18 05:00 Urine Source CLEAN C 06/10/18 20:35 Urine Color YELLOW 06/10/18 20:35 Urine Clarity CLEAR (CLEAR) 06/10/18 20:35 Urine pH 8.0 (4.6 - 8.0) 06/10/18 20:35 Ur Specific [place] 1.010 (1.005-1.030) 06/10/18 20:35 Urine Protein 100 mg/dL (NEGATIVE) H 06/10/18 20:35 Urine Glucose (UA) 100 mg/dL (NEGATIVE) H 06/10/18 20:35 Urine Ketones NEGATIVE mg/dL (NEGATIVE) 06/10/18 20:35 Urine Blood TRACE (NEGATIVE) 06/10/18 20:35 Urine Nitrate NEGATIVE (NEGATIVE) 06/10/18 20:35 Urine Bilirubin NEGATIVE (NEGATIVE) 06/10/18 20:35 Urine Urobilinogen 0.2 E.U./dL (0.2 - 1.0) 06/10/18 20:35 Ur Leukocyte Esterase NEGATIVE (NEGATIVE) 06/10/18 20:35 Urine RBC 2-5 /hpf (0-5) H 06/10/18 20:35 Urine WBC 0-2 /hpf (0-5) 06/10/18 20:35 Ur Epithelial Cells FEW /lpf (FEW) 06/10/18 20:35 Urine Bacteria FEW /hpf (NONE SEEN) 06/10/18 20:35 Urine Mucus FEW /lpf (FEW) 06/10/18 20:35 Hepatitis A IgM Ab Negative (Negative) 06/11/18 05:00 Hep Bs Antigen Negative (Negative) 06/11/18 05:00 Hep B Core IgM Ab Negative (Negative) 06/11/18 05:00 Hepatitis C Antibody 0.1 s/co ratio (0.0-0.9) 06/11/18 05:00 - Physical Exam Vitals and I&O: Vital Signs Temp 98.6 F 06/13/18 11:37 Pulse 62 06/13/18 11:37 Resp 18 06/13/18 11:37 BP 131/61 06/13/18 11:37 Pulse Ox 97 06/13/18 11:37 Intake & Output 06/12/18 06/13/18 06/13/18 18:59 06:59 18:59 Intake Total 1000 120 Balance 1000 120 Weight (lbs) 91.682 kg Intake: Intake, IV Amount 1000 D5-0.45NS 1,000 ml @ 50 1000 mls/hr IV .Q20H [facility] Rx#: [id number] Oral 120 Other: # Voids 3 # Bowel Movements 2 Weight Source Bedscale Active Medications: Current Medications Acetaminophen (Tylenol Extra Strength) 1,000 mg PO Q8H PRN PRN Reason: MOD PAIN Stop: 08/10/18 13:32 Acetaminophen (Tylenol) 650 mg PO Q6H PRN PRN Reason: MILD PAIN OR TEMP >100.5 Acetaminophen/Hydrocodone Bitart ([place] 5mg/325mg) 2 tab PO Q4H PRN PRN Reason: Severe Pain 8-10 Stop: 08/09/18 22:20 Last Admin: 06/13/18 14:24 Dose: 2 tab Alprazolam (Xanax) 0.5 mg PO DAILY [facility]; Protocol Stop: 08/11/18 08:59 Last Admin: 06/13/18 09:00 Dose: 0.5 mg Amiodarone HCl (Cordarone) 200 mg PO DAILY [facility] Stop: 08/11/18 08:59 Last Admin: 06/13/18 09:05 Dose: 200 mg Artificial Tears (Artificial Tears Ophth Soln) 1 drop EACH EYE TID PRN PRN Reason: DRY EYES Ascorbic Acid (Vitamin C) 500 mg PO DAILY [facility] Stop: 08/11/18 08:59 Last Admin: 06/13/18 09:01 Dose: 500 mg Buspirone HCl (Buspar) 10 mg PO BID [facility] Stop: 08/10/18 16:59 Last Admin: 06/13/18 08:58 Dose: 10 mg Calcium Carbonate (Tums) 500 mg PO Q6H PRN PRN Reason: Gas Stop: 08/10/18 13:32 Escitalopram Oxalate (Lexapro) 15 mg PO DAILY [facility]; Protocol Stop: 08/11/18 08:59 Last Admin: 06/13/18 08:57 Dose: 15 mg Famotidine (Pepcid) 20 mg PO DAILY [facility] Stop: 08/11/18 08:59 Last Admin: 06/13/18 09:01 Dose: 20 mg Ferrous Sulfate (Iron) 325 mg PO DAILY [facility] Stop: 08/11/18 08:59 Last Admin: 06/13/18 09:01 Dose: 325 mg Heparin Sodium (Porcine) (Heparin) 2,000 units HD PRN PRN PRN Reason: DIALYSIS DAYS Stop: 08/10/18 13:18 Last Admin: 06/11/18 17:15 Dose: 2,000 units Dextrose/Sodium Chloride (D5-0.45ns) 1,000 mls @ 50 mls/hr IV .Q20H [facility] Stop: 08/09/18 21:59 Last Admin: 06/12/18 15:22 Dose: 50 mls/hr Insulin Aspart (Novolog Insulin Sliding Scale) 0 units SUBQ ACHS [facility]; Protocol Stop: 08/10/18 17:20 Last Admin: 06/13/18 12:19 Dose: 2 units Ivermectin (Stromectol) 15 mg PO QSUN [facility] Stop: 06/16/18 11:00 Lactobacillus Rhamnosus (Culturelle 15b) 1 each PO DAILY [facility] Stop: 08/11/18 08:59 Last Admin: 06/13/18 09:01 Dose: 1 each Levetiracetam (Keppra) 250 mg PO BID [facility] Stop: 08/10/18 16:59 Last Admin: 06/13/18 08:59 Dose: 250 mg Levothyroxine Sodium (Synthroid) 0.075 mg PO QDAC [facility] Stop: 08/11/18 07:29 Last Admin: 06/13/18 08:58 Dose: 0.075 mg Miscellaneous (Clinical Monitoring) 1 ea MC DAILY PRN PRN Reason: RENAL DOSING Stop: 08/10/18 08:11 Miscellaneous (Cyclosporin Opthalmic Solution) 0.05 % OP BID [facility] Stop: 08/10/18 16:59 Multivitamins/Minerals (Theragran M) 15 ml PO DAILY [facility] Stop: 08/11/18 08:59 Last Admin: 06/13/18 09:01 Dose: 15 ml Mupirocin (Bactroban Oint) 1 appl NS BID [facility] Stop: 06/17/18 09:01 Last Admin: 06/13/18 09:00 Dose: Not Given Pantoprazole Sodium (Protonix) 40 mg PO DAILY [facility] Stop: 08/11/18 08:59 Last Admin: 06/13/18 08:58 Dose: 40 mg Permethrin (Elimite 5% Cream) 1 appl TP [id number] [facility] Stop: 06/16/18 20:59 Sevelamer Carbonate (Renvela) 2,400 mg PO TID [facility] Stop: 08/10/18 13:59 Last Admin: 06/13/18 14:16 Dose: 2,400 mg Temazepam (Restoril) 30 mg PO HS PRN; Protocol PRN Reason: Insomnia Stop: 08/10/18 20:32 Last Admin: 06/13/18 14:24 Dose: 30 mg Vitamin B Complex/Vit C/Folic Acid (Vitamin B Complex W/Vitamin C) 1 tab PO DAILY [facility] Stop: 08/11/18 08:59 Last Admin: 06/13/18 08:59 Dose: 1 tab General: NAD HEENT: NC/AT Neck: Supple Lungs: CTAB Cardiovascular: RRR, Normal S1, Normal S2 Abdomen: soft, non-tender Extremities: other (gerardo upper ext pruntic rash ) Neurological: no change, other (gerardo below knee amputation ) Internal Medicine Assmt/Plan - Assessment Assessment: rash upper ext acute dermatitis end stage renal disease /hd dm seizures gerardo below knee amputation - Plan Plan: as per order sheet
[2018-06-13] MEDS: D5-0.45NS 1,000 ML IV SCH (17:48)
--- NOTE | 2018-06-13 18:15 | General Progress Note ---
Subjective - Review of Systems Service Date: 06/13/18 Subjective: awake, comfortable Objective - Results Result Diagrams: 06/13/18 08:25 06/13/18 08:25 Recent Labs: Laboratory Last Values WBC 7.6 Th/cmm (4.8-10.8) 06/13/18 08:25 RBC 4.27 Mil/cmm (4.30-5.70) L 06/13/18 08:25 Hgb 12.6 gm/dL (12-16) 06/13/18 08:25 Hct 38.7 % (41.0-60) L 06/13/18 08:25 MCV 90.7 fl (80-99) 06/13/18 08:25 MCH 29.5 pg (26.0-30.0) 06/13/18 08:25 MCHC Differential 32.6 pg (28.0-36.0) 06/13/18 08:25 RDW 16.9 % (11.5-20.0) 06/13/18 08:25 Plt Count 210 Th/cmm (150-400) 06/13/18 08:25 MPV 7.2 fl 06/13/18 08:25 Neutrophils % 61.7 % (40.0-80.0) 06/13/18 08:25 Lymphocytes % 20.8 % (20.0-50.0) 06/13/18 08:25 Monocytes % 9.8 % (2.0-10.0) 06/13/18 08:25 Eosinophils % 6.5 % (0.0-5.0) H 06/13/18 08:25 Basophils % 1.2 % (0.0-2.0) 06/13/18 08:25 Sodium 132 mEq/L (136-145) L 06/13/18 08:25 Potassium 4.4 mEq/L (3.5-5.1) 06/13/18 08:25 Chloride 98 mEq/L (98-107) 06/13/18 08:25 Carbon Dioxide 25.2 mEq/L (21.0-31.0) 06/13/18 08:25 Anion Gap 13.2 (7.0-16.0) 06/13/18 08:25 BUN 58 mg/dL (7-25) H 06/13/18 08:25 Creatinine 5.5 mg/dL (0.7-1.3) H* 06/13/18 08:25 Est GFR ( Amer) 13.7 ml/min (>90) 06/13/18 08:25 Est GFR (Non-Af Amer) 11.3 ml/min 06/13/18 08:25 BUN/Creatinine Ratio 10.5 06/13/18 08:25 Glucose 105 mg/dL (70-105) 06/13/18 08:25 POC Glucose 101 MG/DL (70 - 105) 06/13/18 16:23 Calcium 8.8 mg/dL (8.6-10.3) 06/13/18 08:25 Total Bilirubin 0.3 mg/dL (0.3-1.0) 06/10/18 18:20 AST 12 U/L (13-39) L 06/10/18 18:20 ALT 16 U/L (7-52) 06/10/18 18:20 Alkaline Phosphatase 102 U/L (34-104) 06/10/18 18:20 Total Protein 5.9 gm/dL (6.0-8.3) L 06/10/18 18:20 Albumin 3.2 gm/dL (4.2-5.5) L 06/10/18 18:20 Globulin 2.7 gm/dL 06/10/18 18:20 Albumin/Globulin Ratio 1.2 (1.0-1.8) 06/10/18 18:20 Triglycerides 79 mg/dL (<150) 06/11/18 05:00 Cholesterol 105 mg/dL (<200) 06/11/18 05:00 LDL Cholesterol Direct 68 mg/dL (75-193) L 06/11/18 05:00 HDL Cholesterol 35 mg/dL (23-92) 06/11/18 05:00 TSH 2.05 uIU/ml (0.34-5.60) 06/11/18 05:00 Urine Source CLEAN C 06/10/18 20:35 Urine Color YELLOW 06/10/18 20:35 Urine Clarity CLEAR (CLEAR) 06/10/18 20:35 Urine pH 8.0 (4.6 - 8.0) 06/10/18 20:35 Ur Specific [place] 1.010 (1.005-1.030) 06/10/18 20:35 Urine Protein 100 mg/dL (NEGATIVE) H 06/10/18 20:35 Urine Glucose (UA) 100 mg/dL (NEGATIVE) H 06/10/18 20:35 Urine Ketones NEGATIVE mg/dL (NEGATIVE) 06/10/18 20:35 Urine Blood TRACE (NEGATIVE) 06/10/18 20:35 Urine Nitrate NEGATIVE (NEGATIVE) 06/10/18 20:35 Urine Bilirubin NEGATIVE (NEGATIVE) 06/10/18 20:35 Urine Urobilinogen 0.2 E.U./dL (0.2 - 1.0) 06/10/18 20:35 Ur Leukocyte Esterase NEGATIVE (NEGATIVE) 06/10/18 20:35 Urine RBC 2-5 /hpf (0-5) H 06/10/18 20:35 Urine WBC 0-2 /hpf (0-5) 06/10/18 20:35 Ur Epithelial Cells FEW /lpf (FEW) 06/10/18 20:35 Urine Bacteria FEW /hpf (NONE SEEN) 06/10/18 20:35 Urine Mucus FEW /lpf (FEW) 06/10/18 20:35 Hepatitis A IgM Ab Negative (Negative) 06/11/18 05:00 Hep Bs Antigen Negative (Negative) 06/11/18 05:00 Hep B Core IgM Ab Negative (Negative) 06/11/18 05:00 Hepatitis C Antibody 0.1 s/co ratio (0.0-0.9) 06/11/18 05:00 - Physical Exam Vitals and I&O: Vital Signs Temp 97.6 F 06/13/18 17:21 Pulse 56 06/13/18 17:21 Resp 20 06/13/18 17:21 BP 144/65 06/13/18 17:21 Pulse Ox 97 06/13/18 17:21 Intake & Output 06/12/18 06/13/18 06/13/18 18:59 06:59 18:59 Intake Total 8153 090 3069 Balance 8092 132 6538 Weight (lbs) 91.682 kg Intake: Intake, IV Amount 1000 1000 D5-0.45NS 1,000 ml @ 50 1000 1000 mls/hr IV .Q20H [facility] Rx#: [id number] Oral 120 Other: # Voids 3 # Bowel Movements 2 Weight Source Bedscale Active Medications: Current Medications Acetaminophen (Tylenol Extra Strength) 1,000 mg PO Q8H PRN PRN Reason: MOD PAIN Stop: 08/10/18 13:32 Acetaminophen (Tylenol) 650 mg PO Q6H PRN PRN Reason: MILD PAIN OR TEMP >100.5 Acetaminophen/Hydrocodone Bitart ([place] 5mg/325mg) 2 tab PO Q4H PRN PRN Reason: Severe Pain 8-10 Stop: 08/09/18 22:20 Last Admin: 06/13/18 14:24 Dose: 2 tab Alprazolam (Xanax) 0.5 mg PO DAILY [facility]; Protocol Stop: 08/11/18 08:59 Last Admin: 06/13/18 09:00 Dose: 0.5 mg Amiodarone HCl (Cordarone) 200 mg PO DAILY [facility] Stop: 08/11/18 08:59 Last Admin: 06/13/18 09:05 Dose: 200 mg Artificial Tears (Artificial Tears Ophth Soln) 1 drop EACH EYE TID PRN PRN Reason: DRY EYES Ascorbic Acid (Vitamin C) 500 mg PO DAILY [facility] Stop: 08/11/18 08:59 Last Admin: 06/13/18 09:01 Dose: 500 mg Buspirone HCl (Buspar) 10 mg PO BID [facility] Stop: 08/10/18 16:59 Last Admin: 06/13/18 17:33 Dose: 10 mg Calcium Carbonate (Tums) 500 mg PO Q6H PRN PRN Reason: Gas Stop: 08/10/18 13:32 Escitalopram Oxalate (Lexapro) 15 mg PO DAILY [facility]; Protocol Stop: 08/11/18 08:59 Last Admin: 06/13/18 08:57 Dose: 15 mg Famotidine (Pepcid) 20 mg PO DAILY [facility] Stop: 08/11/18 08:59 Last Admin: 06/13/18 09:01 Dose: 20 mg Ferrous Sulfate (Iron) 325 mg PO DAILY [facility] Stop: 08/11/18 08:59 Last Admin: 06/13/18 09:01 Dose: 325 mg Heparin Sodium (Porcine) (Heparin) 2,000 units HD PRN PRN PRN Reason: DIALYSIS DAYS Stop: 08/10/18 13:18 Last Admin: 06/11/18 17:15 Dose: 2,000 units Dextrose/Sodium Chloride (D5-0.45ns) 1,000 mls @ 50 mls/hr IV .Q20H [facility] Stop: 08/09/18 21:59 Last Admin: 06/13/18 17:48 Dose: 50 mls/hr Insulin Aspart (Novolog Insulin Sliding Scale) 0 units SUBQ ACHS [facility]; Protocol Stop: 08/10/18 17:20 Last Admin: 06/13/18 17:20 Dose: Not Given Ivermectin (Stromectol) 15 mg PO QSUN [facility] Stop: 06/16/18 11:00 Lactobacillus Rhamnosus (Culturelle 15b) 1 each PO DAILY [facility] Stop: 08/11/18 08:59 Last Admin: 06/13/18 09:01 Dose: 1 each Levetiracetam (Keppra) 250 mg PO BID [facility] Stop: 08/10/18 16:59 Last Admin: 06/13/18 17:33 Dose: 250 mg Levothyroxine Sodium (Synthroid) 0.075 mg PO QDAC [facility] Stop: 08/11/18 07:29 Last Admin: 06/13/18 08:58 Dose: 0.075 mg Miscellaneous (Clinical Monitoring) 1 ea MC DAILY PRN PRN Reason: RENAL DOSING Stop: 08/10/18 08:11 Miscellaneous (Cyclosporin Opthalmic Solution) 0.05 % OP BID [facility] Stop: 08/10/18 16:59 Multivitamins/Minerals (Theragran M) 15 ml PO DAILY [facility] Stop: 08/11/18 08:59 Last Admin: 06/13/18 09:01 Dose: 15 ml Mupirocin (Bactroban Oint) 1 appl NS BID [facility] Stop: 06/17/18 09:01 Last Admin: 06/13/18 17:33 Dose: 1 appl Pantoprazole Sodium (Protonix) 40 mg PO DAILY [facility] Stop: 08/11/18 08:59 Last Admin: 06/13/18 08:58 Dose: 40 mg Permethrin (Elimite 5% Cream) 1 appl TP [id number] [facility] Stop: 06/16/18 20:59 Sevelamer Carbonate (Renvela) 2,400 mg PO TID [facility] Stop: 08/10/18 13:59 Last Admin: 06/13/18 14:16 Dose: 2,400 mg Temazepam (Restoril) 30 mg PO HS PRN; Protocol PRN Reason: Insomnia Stop: 08/10/18 20:32 Last Admin: 06/13/18 14:24 Dose: 30 mg Vitamin B Complex/Vit C/Folic Acid (Vitamin B Complex W/Vitamin C) 1 tab PO DAILY [facility] Stop: 08/11/18 08:59 Last Admin: 06/13/18 08:59 Dose: 1 tab General: Alert, No acute distress HEENT: Atraumatic, PERRLA, EOMI, Mucous membr. moist/pink Neck: Supple, +2 carotid pulse wo bruit Cardiovascular: Regular rate, Normal S1 Lungs: Clear to auscultation Abdomen: Bowel sounds, Soft, Obese Extremities: no Edema Neurological: Sensation intact Skin: no Rash Psych/Mental Status: Mood NL Assessment/Plan - Problem List Patient Problems: All Active Problems RASH, WEAKNESS AND SYNCOPE (Acute) - Assessment Assessment: ESRD on HD Upper Chest Scabies Legally Blind Anemia of CD T2DM w/ CKD Ess Htn w/ CKD Epilepsy Hypothyroid - Plan Plan: Lab - Result Diagrams 06/12/18 06:10 06/12/18 06:10 Current Medications Acetaminophen (Tylenol Extra Strength) 1,000 mg PO Q8H PRN PRN Reason: MOD PAIN Stop: 08/10/18 13:32 Acetaminophen (Tylenol) 650 mg PO Q6H PRN PRN Reason: MILD PAIN OR TEMP >100.5 Acetaminophen/Hydrocodone Bitart ([place] 5mg/325mg) 1 tab PO Q4H PRN PRN Reason: Severe Pain 8-10 Stop: 08/09/18 22:20 Last Admin: 06/12/18 13:37 Dose: 1 tab Alprazolam (Xanax) 0.5 mg PO DAILY [facility]; Protocol Stop: 08/11/18 08:59 Amiodarone HCl (Cordarone) 200 mg PO DAILY [facility] Stop: 08/11/18 08:59 Last Admin: 06/12/18 10:32 Dose: 200 mg Artificial Tears (Artificial Tears Ophth Soln) 1 drop EACH EYE TID PRN PRN Reason: DRY EYES Ascorbic Acid (Vitamin C) 500 mg PO DAILY [facility] Stop: 08/11/18 08:59 Last Admin: 06/12/18 10:31 Dose: 500 mg Buspirone HCl (Buspar) 10 mg PO BID [facility] Stop: 08/10/18 16:59 Calcium Carbonate (Tums) 500 mg PO Q6H PRN PRN Reason: Gas Stop: 08/10/18 13:32 Escitalopram Oxalate (Lexapro) 15 mg PO DAILY [facility]; Protocol Stop: 08/11/18 08:59 Famotidine (Pepcid) 20 mg PO DAILY [facility] Stop: 08/11/18 08:59 Last Admin: 06/12/18 10:32 Dose: 20 mg Ferrous Sulfate (Iron) 325 mg PO DAILY [facility] Stop: 08/11/18 08:59 Last Admin: 06/12/18 10:31 Dose: 325 mg Heparin Sodium (Porcine) (Heparin) 2,000 units HD PRN PRN PRN Reason: DIALYSIS DAYS Stop: 08/10/18 13:18 Last Admin: 06/11/18 17:15 Dose: 2,000 units Dextrose/Sodium Chloride (D5-0.45ns) 1,000 mls @ 50 mls/hr IV .Q20H [facility] Stop: 08/09/18 21:59 Last Admin: 06/11/18 18:52 Dose: 50 mls/hr Insulin Aspart (Novolog Insulin Sliding Scale) 0 units SUBQ ACHS [facility]; Protocol Stop: 08/10/18 17:20 Last Admin: 06/12/18 11:56 Dose: Not Given Ivermectin (Stromectol) 15 mg PO QSUN [facility] Stop: 06/16/18 11:00 Lactobacillus Rhamnosus (Culturelle 15b) 1 each PO DAILY [facility] Stop: 08/11/18 08:59 Last Admin: 06/12/18 10:32 Dose: 1 each Levetiracetam (Keppra) 250 mg PO BID [facility] Stop: 08/10/18 16:59 Last Admin: 06/12/18 10:32 Dose: 250 mg Levothyroxine Sodium (Synthroid) 0.075 mg PO QDAC [facility] Stop: 08/11/18 07:29 Last Admin: 06/12/18 06:56 Dose: 0.075 mg Miscellaneous (Clinical Monitoring) 1 ea MC DAILY PRN PRN Reason: RENAL DOSING Stop: 08/10/18 08:11 Miscellaneous (Cyclosporin Opthalmic Solution) 0.05 % OP BID [facility] Stop: 08/10/18 16:59 Multivitamins/Minerals (Theragran M) 15 ml PO DAILY [facility] Stop: 08/11/18 08:59 Last Admin: 06/12/18 10:31 Dose: 15 ml Pantoprazole Sodium (Protonix) 40 mg PO DAILY [facility] Stop: 08/11/18 08:59 Last Admin: 06/12/18 10:32 Dose: 40 mg Permethrin (Elimite 5% Cream) 1 appl TP [id number] [facility] Stop: 06/16/18 20:59 Sevelamer Carbonate (Renvela) 2,400 mg PO TID [facility] Stop: 08/10/18 13:59 Last Admin: 06/12/18 13:37 Dose: 2,400 mg Temazepam (Restoril) 30 mg PO HS PRN; Protocol PRN Reason: Insomnia Stop: 08/10/18 20:32 Last Admin: 06/11/18 20:50 Dose: 30 mg Vitamin B Complex/Vit C/Folic Acid (Vitamin B Complex W/Vitamin C) 1 tab PO DAILY [facility] Stop: 08/11/18 08:59 Last Admin: 06/12/18 10:32 Dose: 1 tab Lab - Result Diagrams 06/12/18 06:10 06/12/18 06:10 schedule for HD today continue Ivermectin, Permethine
--- NOTE | 2018-06-17 09:59 | Discharge Summary ---
DATE OF DISCHARGE: 06/13/2018 The patient admitted on 06/10/2018 and discharged on 06/13/2018 to [facility]. The patient was admitted for end-stage renal disease on hemodialysis; anemia; history of diabetes type 2; dyslipidemia; seizures; history of atrial fibrillation; GERD; legally blind; peripheral vascular disease and hypothyroidism. The patient was worked up and treated, also had dialysis with Dr. Reina and the patient improved. The patient was in stable condition on 06/13/2018. The patient was sent to ____ where I will be following the patient. CONDITION AT THE TIME OF DISCHARGE: Stable. FINAL DIAGNOSES: Severe peripheral vascular disease; right leg pain; history of end-stage renal disease, on dialysis; diabetes; epilepsy; ____; legally blind and hypothyroidism. MEDICATIONS: See the reconciliation sheet. ACTIVITY: As tolerated. JOB# [id number]
== END 2018-06-13 20:15 | DRG 606 ==
LOC: ER 17:47 → MSI 20:56
PROVIDERS: ADMIT Internal Medicine; ATTEND Internal Medicine
PROC: 5A1D70Z Performance of Urinary Filtration, Intermittent, Less than 6 Hours Per Day (ICD-10-PCS; principal; 2018-06-11)
PROC: 5A1D70Z Performance of Urinary Filtration, Intermittent, Less than 6 Hours Per Day (ICD-10-PCS; 2018-06-13)
DX: L30.8 Other specified dermatitis (principal); N18.6 End stage renal disease; L03.818 Cellulitis of other sites; I12.0 Hypertensive chronic kidney disease with stage 5 chronic kidney disease or end stage renal disease; E11.51 Type 2 diabetes mellitus with diabetic peripheral angiopathy without gangrene; I48.2 Chronic atrial fibrillation; E03.9 Hypothyroidism, unspecified; K21.9 Gastro-esophageal reflux disease without esophagitis; M79.604 Pain in right leg; D63.1 Anemia in chronic kidney disease; E11.22 Type 2 diabetes mellitus with diabetic chronic kidney disease; H54.8 Legal blindness, as defined in USA; D63.8 Anemia in other chronic diseases classified elsewhere; G40.909 Epilepsy, unspecified, not intractable, without status epilepticus; E78.5 Hyperlipidemia, unspecified; B86 Scabies; Z99.2 Dependence on renal dialysis; Z89.512 Acquired absence of left leg below knee; Z89.511 Acquired absence of right leg below knee
CPT/HCPCS: 36415-UA; 80048-TC; 80053-TC; 80061-TC; 80074-90; 81001-TC; 82948-90; 83036-90; 84443-TC; 85007-TC; 85025-TC; 90937; 93925-TC; J1644; J1815; Z7610